=== PATIENT | male | born 1960 ===

== ENCOUNTER 2019-02-17 09:50 | Emergency (ER) | payer SELFPAY ==
[~2019-02-17] VITALS: Ht 180.3 cm; Wt 80.0 kg
[2019-02-17] MEDS ORDERED: MELOXICAM15 MG PO (10:38)
[2019-02-17] MEDS ORDERED: AMLODIPINE BESY10 MG PO (10:38)
[2019-02-17 11:25] VITALS: BP 146/94
== END 2019-02-17 11:25 | disposition home or self-care (01) | DRG 605 ==
LOC: ED 09:50
PROC: 0HQFXZZ Repair Right Hand Skin, External Approach (ICD-10-PCS; principal; 2019-02-17)
DX: S61.214A Laceration without foreign body of right ring finger without damage to nail, initial encounter (principal); Y99.0 Civilian activity done for income or pay; F17.210 Nicotine dependence, cigarettes, uncomplicated; W29.3XXA Contact with powered garden and outdoor hand tools and machinery, initial encounter; Y93.H2 Activity, gardening and landscaping; Y92.89 Other specified places as the place of occurrence of the external cause; I10 Essential (primary) hypertension